=== PATIENT | male | born 1975 | race Caucasian/White ===

== ENCOUNTER 2020-05-09 09:32 | Emergency (ER) | payer OTHER ==
[2020-05-09] MEDS ORDERED: Famotidine 20 MG TAB ONE (10:13)
[2020-05-09] MEDS ORDERED: predniSONE 20 MG TAB ONE (10:15)
== END 2020-05-09 10:45 ==
LOC: ERS 09:32 → EEVIPCON 09:32 → ERS 10:45
DX: L50.9 Urticaria, unspecified (principal); I10 Essential (primary) hypertension; J45.909 Unspecified asthma, uncomplicated; Z79.899 Other long term (current) drug therapy
CPT/HCPCS: 99283; J7512